=== PATIENT | female | born 1950 | race Caucasian/White ===

== ENCOUNTER 2017-03-05 14:28 | Inpatient (IN) ==
[2017-03-05] MEDS ORDERED: SODIUM CHLORIDE 0.9% 500 ML IV STA (16:36)
[2017-03-05 17:17] LABS: Basophils # 0.1 10*3/uL (0.0-0.2); Basophils % 0.6 % (0.0-0.8); Eosinophils # 0.4 10*3/uL (0.0-0.87); Eosinophils % 4.7 % (0.00-10.9); Hematocrit 36.4 VOL% (35.7-47.0); Hemoglobin 11.7 GM/DL (12.0-16.0); Immature Granulocytes % 0.6 %; Immature Granulocytes Absolute 0.05 #; Lymphocytes # 3.3 10*3/uL (1.4-4.0); Mean Corpuscular HGB Conc 32.1 GM/DL (32-36); Mean Corpuscular Hemoglobin 29 PG (27-34); Mean Platelet Volume 11.2 FL (9.6-12.0); Monocytes # 0.7 10*3/uL (0.11-0.8); Monocytes % 8.7 % (1.7-12.7); Neutrophils # 3.5 10*3/uL (1.4-7.4); Neutrophils % 44.4 % (38.7-73.9); Platelet Count 191 T/CUMM (130-400); Red Blood Count 4.09 MC/CUMM (3.8-5.5); Red Cell Distribution Width 14.9 % (9.3-17.3); White Blood Count 7.9 T/CUMM (4-12)
[2017-03-05 17:34] LABS: Ammonia 31 UMOL/L (11-32)
[2017-03-05 17:40] LABS: Alanine Aminotransferase 21 U/L (13-56); Albumin 3.3 G/DL (3.4-5.0); Alkaline Phosphatase 109 U/L (45-117); Aspartate Amino Transferase 33 U/L (0-37); Blood Urea Nitrogen 16 MG/DL (7-18); Calcium 8.5 MG/DL (8.5-10.1); Glucose 85 MG/DL (74-106); Magnesium 2.4 MG/DL (1.8-2.4); Osmolality,Calculated 280.3 MOS/KG (273-304); Potassium 4.3 MMOL/L (3.5-5.1); Sodium 141 MMOL/L (136-145); Total Protein 7.3 G/DL (6.4-8.3); Troponin I Only < 0.015 NG/ML (0.00-0.045)
[2017-03-05 17:45] LABS: Barbiturates Screen,Urine Negative (Negative); Benzodiazepines Screen,Urine Positive (Negative); Cannabinoid Screen,Urine Negative (Negative); Opiate Screen,Urine Positive (Negative); Phencyclidine Screen,Urine Negative (Negative)
[2017-03-05 17:46] LABS: Apearance,Urine Slightly Hazy (Clear); Bilirubin,Urine Negative (Negative); Blood, Urine Small mg/dL (Negative); Glucose,Urine (UA) Negative (Negative); Hyaline Casts,Urine 10 /LPF (0-3); Ketones,Urine Negative (Negative); Mucus,Urine Few /LPF (Occasional); Nitrite,Urine Negative (Negative); Protein,Urine Negative; RBC,Urine 1 /HPF (0-4); Squamous Epithelial Cell,Urine Occasional /HPF (0-10); Urine Color Yellow (Yellow); Urine Specific Gravity 1.025 (1.001-1.035); Urine Urobilinogen < 2.0 EU/DL (0.2-1.0); WBC,Urine 1 /HPF (0-6)
[2017-03-05] MEDS ORDERED: ONDANSETRON 4 MG/2 ML VIAL IV PRN (21:20)
[2017-03-05] MEDS ORDERED: ALBUTEROL 2.5 MG/3 ML NEB RESP TX PRN (21:20)
[2017-03-05] MEDS ORDERED: MONTELUKAST 10 MG TABLET PO SCH (21:20)
[2017-03-05] MEDS: SODIUM CHLORIDE 0.9% 1,000 ML IV SCH (21:32)
[2017-03-05] MEDS: DOCUSATE SODIUM 100 MG CAPSULE PO SCH (21:32)
[2017-03-05 21:46] LABS: Free T4 (Free Thyroxine) 1.3 NG/DL (0.76-1.46); Thyroid Stimulating Hormone 0.714 uIU/ml (0.358-3.74)
[2017-03-06] MEDS: SODIUM CHLORIDE 0.9% 1,000 ML IV SCH ×2 (05:34→15:11)
[2017-03-06] MEDS ORDERED: LEVOTHYROXINE 100 MCG TABLET PO SCH (07:00)
[2017-03-06] MEDS ORDERED: ENOXAPARIN 40 MG/0.4 ML SYRINGE SUBCUT SCH (09:00)
[2017-03-06] MEDS ORDERED: NEBIVOLOL 10 MG TABLET PO SCH (09:00)
[2017-03-06] MEDS ORDERED: FUROSEMIDE 20 MG TABLET PO SCH (09:00)
[2017-03-06] MEDS ORDERED: ATORVASTATIN 40 MG TABLET PO SCH (09:00)
[2017-03-06] MEDS ORDERED: ASPIRIN EC 81 MG TABLET PO SCH (09:00)
[2017-03-06] MEDS ORDERED: PANTOPRAZOLE 40 MG TABLET PO SCH (09:00)
[2017-03-06] MEDS ORDERED: ISOSORBIDE MONONITRATE 30 MG TABLET PO SCH (09:00)
[2017-03-06] MEDS: DOCUSATE SODIUM 100 MG CAPSULE PO SCH (09:11)
[2017-03-06] MEDS: ACETAMINOPHEN 325 MG TABLET PO PRN ×2 (09:11→15:15)
[2017-03-06 12:23] VITALS: BP 103/59
[2017-03-06] MEDS ORDERED: ALUMINUM/MAGNES/SIMETH MAX STR 30 ML UDCUP PO PRN (14:50)
== END 2017-03-06 15:50 | disposition home or self-care (01) | DRG 52 ==
LOC: N.ED 14:28 → N.EDINP 18:51 → SUATTDRO 18:51 → N.2E 19:51
PROVIDERS: ADMIT Internal Medicine; ATTEND Internal Medicine

== ENCOUNTER 2018-06-12 10:35 | Observation (INO) ==
[2018-06-12] MEDS ORDERED: ASPIRIN 325 MG TABLET PO STA (11:07)
[2018-06-12 11:17] LABS: Basophils % 0.7 % (0.0-0.8); Eosinophils # 0.1 10*3/uL (0.0-0.87); Eosinophils % 2.4 % (0.00-10.9); Hematocrit 41.5 VOL% (35.7-47.0); Hemoglobin 13.3 GM/DL (12.0-16.0); Immature Granulocytes % 0.2 %; Immature Granulocytes Absolute 0.01 #; Lymphocytes # 1.6 10*3/uL (1.4-4.0); Lymphocytes % 27.4 % (21.3-54.2); Mean Corpuscular Hemoglobin 28 PG (27-34); Mean Corpuscular Volume 86.8 FL (87-102); Mean Platelet Volume 12.6 FL (9.6-12.0); Monocytes # 0.5 10*3/uL (0.11-0.8); Monocytes % 7.8 % (1.7-12.7); Neutrophils # 3.6 10*3/uL (1.4-7.4); Neutrophils % 61.5 % (38.7-73.9); Platelet Count 194 T/CUMM (130-400); Red Blood Count 4.78 MC/CUMM (3.8-5.5); Red Cell Distribution Width 13.3 % (9.3-17.3); White Blood Count 5.9 T/CUMM (4-12)
[2018-06-12 11:30] LABS: Albumin 3.9 G/DL (3.4-5.0); Bilirubin,Total 0.5 MG/DL (0.2-1.0); Calcium 8.8 MG/DL (8.5-10.1); Osmolality,Calculated 281.3 MOS/KG (273-304); Potassium 3.5 MMOL/L (3.5-5.1); Total Protein 8.2 G/DL (6.4-8.3)
[2018-06-12] MEDS ORDERED: DOCUSATE SODIUM 100 MG CAPSULE PO PRN (14:36)
[2018-06-12] MEDS ORDERED: ONDANSETRON 4 MG/2 ML VIAL IV PRN (14:36)
[2018-06-12] MEDS ORDERED: ACETAMINOPHEN 325 MG TABLET PO PRN (14:36)
[2018-06-12] MEDS ORDERED: ONDANSETRON 4 MG TABLET PO PRN (14:38)
[2018-06-12] MEDS ORDERED: tiZANidine 4 MG TABLET PO PRN (14:38)
[2018-06-12] MEDS ORDERED: NITROGLYCERIN SL 0.4 MG TABLET SL PRN (14:38)
[2018-06-12] MEDS ORDERED: ALBUTEROL 2.5 MG/3 ML NEB RESP TX PRN (14:38)
[2018-06-12] MEDS ORDERED: ALUM/MAG/SIMETH/LIDO VISC 1:1 30 ML BOTTLE PO ONE (16:49)
[2018-06-12] MEDS: POTASSIUM CHLORIDE 10 MEQ TABLET PO SCH (17:23)
[2018-06-12] MEDS: ALPRAZolam 0.5 MG TABLET PO SCH (17:24)
[2018-06-12] MEDS: ENOXAPARIN 40 MG/0.4 ML SYRINGE SUBCUT SCH (17:29)
[2018-06-12 20:01] LABS: Troponin I < 0.015 NG/ML (0.00-0.045)
[2018-06-12] MEDS ORDERED: METOPROLOL TARTRATE 25 MG TABLET PO SCH (21:00)
[2018-06-12] MEDS ORDERED: FAMOTIDINE 20 MG TABLET PO SCH (21:00)
[2018-06-12] MEDS ORDERED: ALPRAZolam 0.5 MG TABLET PO SCH (21:00)
[2018-06-12] MEDS ORDERED: MONTELUKAST 10 MG TABLET PO SCH (21:00)
[2018-06-12] MEDS: METOPROLOL TARTRATE 50 MG TABLET PO SCH (21:35)
[2018-06-12] MEDS: MECLIZINE 25 MG TABLET PO SCH (21:36)
[2018-06-12] MEDS: PANTOPRAZOLE 40 MG VIAL IV SCH (21:36)
[2018-06-13 01:19] LABS: Basophils % 0.5 % (0.0-0.8); Eosinophils # 0.3 10*3/uL (0.0-0.87); Eosinophils % 4.5 % (0.00-10.9); Hematocrit 40.3 VOL% (35.7-47.0); Hemoglobin 12.5 GM/DL (12.0-16.0); Immature Granulocytes % 0.3 %; Immature Granulocytes Absolute 0.02 #; Lymphocytes # 2.4 10*3/uL (1.4-4.0); Lymphocytes % 36.4 % (21.3-54.2); Mean Corpuscular Hemoglobin 28 PG (27-34); Mean Corpuscular Volume 88.8 FL (87-102); Mean Platelet Volume 12.1 FL (9.6-12.0); Monocytes # 0.7 10*3/uL (0.11-0.8); Monocytes % 10.4 % (1.7-12.7); Neutrophils # 3.2 10*3/uL (1.4-7.4); Neutrophils % 47.9 % (38.7-73.9); Platelet Count 206 T/CUMM (130-400); Red Blood Count 4.54 MC/CUMM (3.8-5.5); Red Cell Distribution Width 13.4 % (9.3-17.3); White Blood Count 6.6 T/CUMM (4-12)
[2018-06-13 01:55] LABS: Troponin I < 0.015 NG/ML (0.00-0.045)
[2018-06-13 02:02] LABS: Alanine Aminotransferase 11 U/L (13-56); Albumin 2.9 G/DL (3.4-5.0); Alkaline Phosphatase 74 U/L (45-117); Aspartate Amino Transferase 10 U/L (0-37); Bilirubin,Total < 0.39 MG/DL (0.2-1.0); Blood Urea Nitrogen 17 MG/DL (7-18); Calcium 8.7 MG/DL (8.5-10.1); Cholesterol 168 MG/DL (50-200); Glucose 100 MG/DL (74-106); HDL Cholesterol 36 MG/DL (40-60); Osmolality,Calculated 282.3 MOS/KG (273-304); Risk Ratio 4.67; Sodium 141 MMOL/L (136-145); Thyroid Stimulating Hormone 0.343 uIU/ml (0.358-3.74); Total Protein 6.7 G/DL (6.4-8.3); Triglycerides 173 MG/DL (2-150); VLDL CHOLESTEROL 34.6 MG/DL
[2018-06-13] MEDS ORDERED: LEVOTHYROXINE 75 MCG TABLET PO SCH (07:00)
[2018-06-13] MEDS ORDERED: REGADENOSON 0.4 MG/5 ML SYRINGE IV ONE (08:01)
[2018-06-13] MEDS ORDERED: SERTRALINE 100 MG TABLET PO SCH (09:00)
[2018-06-13] MEDS ORDERED: ALPRAZolam 0.5 MG TABLET PO SCH (09:00)
[2018-06-13] MEDS ORDERED: PANTOPRAZOLE 40 MG TABLET PO SCH ×2 (09:00)
[2018-06-13] MEDS: METOPROLOL TARTRATE 50 MG TABLET PO SCH (09:36)
[2018-06-13] MEDS: POTASSIUM CHLORIDE 10 MEQ TABLET PO SCH (09:36)
[2018-06-13] MEDS: MECLIZINE 25 MG TABLET PO SCH (09:36)
[2018-06-13] MEDS: PANTOPRAZOLE 40 MG VIAL IV SCH (09:37)
[2018-06-13] MEDS: ENOXAPARIN 40 MG/0.4 ML SYRINGE SUBCUT SCH (15:00)
[2018-06-13] MEDS: ALPRAZolam 0.5 MG TABLET PO SCH (15:20)
[2018-06-13 16:28] VITALS: BP 110/62
== END 2018-06-13 16:30 | disposition home or self-care (01) ==
LOC: N.EDINP 10:35 → N.ED 10:35 → SUATTDRO 13:36 → N.EDINP 15:12 → N.5E 15:58
PROVIDERS: ADMIT Family Medicine; ATTEND Internal Medicine